=== PATIENT | female | born 1995 | race Caucasian/White ===

== ENCOUNTER 2017-01-30 02:11 | Emergency (ER) | payer OTHER ==
[2017-01-30 02:16] VITALS: RESP 16
[2017-01-30] MEDS ORDERED: HYDROCODONE/APAP 5/325 TAB PO ONE (02:47)
--- NOTE | 2017-01-30 02:47 | EDPHY ---
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 Patient states she has recently had an ultrasound which showed bilateral ovarian cysts. At worst pain was about an 8/10. Right now it is improved is down to a 4. Has had some nausea and vomiting associated with this pain. No fevers or chills. There are no aggravating or alleviating factors. She has a history of an appendectomy in the past. She has not taking any pain medication and did not take her usual hydrocodone at home. Last menstrual. Was about a month ago. She states she is irregular but also recently restarted on oral contraceptives. She is sexually active with a single partner. Does not have a history of sexually transmitted infections in the past. She has never been . ROS: 10 point Review of Systems is negative except as noted in the HPI. PMH: Ovarian cysts, appendectomy Social History: No smoking, no alcohol, no recreational drug use Family History: non-contributory Physical Exam: Gen: Awake, Alert, No Distress HEENT: Nose: no rhinorrhea Eyes: PERRLA, EOMI Mouth: Moist mucosa Neck: Supple, no JVD Chest: nontender, lungs clear to auscultation Heart: S1, S2 normal, no murmur Abd: Soft, moderate right adnexal and lower abdominal tenderness with mild left lower adnexal tenderness, no guarding Back: no CVA tenderness, no midline tenderness Ext: no edema, non-tender Skin: no rash Neuro: CN II-XII intact, Sensation grossly intact, Strength 5/5 in bilateral upper and lower extremities - Personal History LMP (Females 10-55): 15-21 Days Ago Current Tetanus/Diphtheria Vaccine: Yes Current Tetanus Diphtheria and Acellular Pertussis (TDAP): Yes - Medical/Surgical History Hx Asthma: No Hx Chronic Respiratory Disease: No Hx Diabetes: No Hx Cardiac Disease: No Hx Renal Disease: No Hx Cirrhosis: No Hx Alcoholism: No Hx HIV/AIDS: No Hx Splenectomy or Spleen Trauma: No Other PMH: ovarian cysts, appendectomy - Social History Smoking Status: Never smoked Constitutional: Initial Vital Signs Temperature (C) 37.2 C 01/30/17 02:14 Heart Rate 81 01/30/17 02:14 Respiratory Rate 16 01/30/17 02:14 Blood Pressure 134/78 H 01/30/17 02:14 O2 Sat (%) 99 01/30/17 02:14 O2 Delivery Mode Room Air Allergies/Adverse Reactions: ibuprofen Allergy (Verified 01/30/17 02:17) Home Medications: Medication Instructions Recorded Percocet 5/325 (*) 01/30/17 [place] 28 Tablet 01/30/17 Medical Decision Making ED Course/Re-evaluation: 21-year-old female with pelvic pain which is resolved. At worst it was an 8. It was down to a 4 when she arrived prior to any treatment. She has a soft benign abdomen with some tenderness. Repeat examination is benign. She is not . Urinalysis is . I have cautioned her that this pain could represent ovarian torsion but given that her pain is resolved I think it is unlikely to see any findings on ultrasound at this time. She clearly at this point does not have a surgical abdomen or process. She knows that the pain becomes severe again she needs to return for further evaluation. - Data Points Laboratory Results: 01/30/17 01/30/17 02:21 02:21 Urine Color YELLOW Urine Appearance CLEAR Urine pH 5.0 (5.0-7.5) Ur Specific [place] 1.028 (1.002-1.030) Urine Protein NEGATIVE (NEGATIVE) Urine Ketones NEGATIVE (NEGATIVE) Urine Blood NEGATIVE (NEGATIVE) Urine Nitrate NEGATIVE (NEGATIVE) Urine Bilirubin NEGATIVE (NEGATIVE) Urine Urobilinogen NEGATIVE EU EU (0.2-1.0) Ur Leukocyte Esterase NEGATIVE (NEGATIVE) Urine Glucose NEGATIVE (NEGATIVE) Urine Test NEGATIVE Medications Given: Discontinued Medications Hydrocodone Bitart/Acetaminophen ([place] 5/325) 2 tab PO EDNOW ONE Stop: 01/30/17 02:48 Last Admin: 01/30/17 02:57 Dose: 2 tab Departure - Departure Disposition: Home, Routine, Self-Care Clinical Impression: Pelvic pain Condition: Fair Instructions: Pelvic Pain in Women (ED) Additional Instructions: Follow up with your OBGYN doctor in 2-3 days for further evaluation. If the pain returns and is severe return immediately to the emergency department for further evaluation. You may take your usual pain medicine as needed for your usual pain. Referrals: RODOLFO LEGER [Other] - As per Instructions
[2017-01-30 03:02] LABS: COLOR YELLOW; LEUKOCYTE ESTERASE,URINE NEGATIVE (NEGATIVE); NITRITE,URINE NEGATIVE (NEGATIVE)
[2017-01-30 03:40] VITALS: BP 132/74; PULSE 71; TEMP 98.6; O2SAT 97
== END 2017-01-30 03:40 | disposition home or self-care (01) ==
DX: R10.2 Pelvic and perineal pain (principal); Z90.49 Acquired absence of other specified parts of digestive tract

== ENCOUNTER 2018-01-18 02:01 | Emergency (ER) | payer OTHER ==
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
[2018-01-18] MEDS ORDERED: NS 1,000 ML IV ONE ×2 (02:08→02:58)
[2018-01-18] MEDS ORDERED: LORazepam 2 MG/ML INJ ONE (02:37)
[2018-01-18] MEDS ORDERED: LORazepam 2 MG/ML INJ IVP ONE ×2 (02:38→03:02)
[2018-01-18] MEDS ORDERED: ADENOSINE 6 MG/2 ML VIAL ONE (02:46)
[2018-01-18] MEDS ORDERED: ADENOSINE 6 MG/2 ML VIAL IVP ONE (02:50)
[2018-01-18 02:59] LABS: PLATELET COUNT 242 10^3/uL (150-400)
[2018-01-18 08:04] VITALS: BP 98/62
--- NOTE | 2018-01-18 08:20 | CPEKG ---
Test Reason : OPEN Blood Pressure : / mmHG Vent. Rate : 179 BPM Atrial Rate : 174 BPM P-R Int : 000 ms QRS Dur : 075 ms QT Int : 287 ms P-R-T Axes : 000 067 060 degrees QTc Int : 496 ms Sinus tachycardia Minimal ST depression, inferior leads Prolonged QT interval Confirmed by Rick Proctor ([id number]) on 01/18/2018 8:19:42 AM Referred By: Confirmed By:Rick Proctor
--- NOTE | 2018-01-18 08:20 | CPEKG ---
Test Reason : OPEN Blood Pressure : / mmHG Vent. Rate : 178 BPM Atrial Rate : 089 BPM P-R Int : 000 ms QRS Dur : 079 ms QT Int : 292 ms P-R-T Axes : 000 073 056 degrees QTc Int : 503 ms Sinus tachycardia Prolonged QT interval Confirmed by Rick Proctor ([id number]) on 01/18/2018 8:19:43 AM Referred By: Confirmed By:Rick Proctor
--- NOTE | 2018-01-18 08:21 | CPEKG ---
Test Reason : OPEN Blood Pressure : / mmHG Vent. Rate : 140 BPM Atrial Rate : 000 BPM P-R Int : 000 ms QRS Dur : 075 ms QT Int : 316 ms P-R-T Axes : 000 067 054 degrees QTc Int : 482 ms Junctional tachycardia Borderline prolonged QT interval Confirmed by Rick Proctor ([id number]) on 01/18/2018 8:19:43 AM Referred By: Confirmed By:Rick Proctor
--- NOTE | 2018-01-18 08:21 | CPEKG ---
Test Reason : OPEN Blood Pressure : / mmHG Vent. Rate : 178 BPM Atrial Rate : 179 BPM P-R Int : 176 ms QRS Dur : 073 ms QT Int : 311 ms P-R-T Axes : 063 070 062 degrees QTc Int : 536 ms Sinus tachycardia Prolonged QT interval Confirmed by Rick Proctor ([id number]) on 01/18/2018 8:19:44 AM Referred By: Confirmed By:Rick Proctor
== END 2018-01-18 08:02 | disposition home or self-care (01) ==
LOC: MERGE 02:01 → EDBD 02:01
DX: S00.83XA Contusion of other part of head, initial encounter (principal); R00.0 Tachycardia, unspecified; E86.0 Dehydration; Y04.0XXA Assault by unarmed brawl or fight, initial encounter; Y92.9 Unspecified place or not applicable; F10.920 Alcohol use, unspecified with intoxication, uncomplicated
CPT/HCPCS: 80305; 96374; G0480; J0153; J2060